=== PATIENT | male | born 1995 | race Hispanic/Latino ===

== ENCOUNTER 2021-07-29 02:21 | Emergency (ER) | payer BC ==
[2021-07-29 04:54] LABS: Basophils % (Auto) 0.4 % (0.0-1.8); Eosinophils % (Auto) 0.2 % (0.0-4.3); Hematocrit 41.9 % (35.5-45.6); Hemoglobin 13.3 gm/dl (11.8-15.2); Lymphocytes # (Auto) 2.3 K/mm3 (1.2-5.4); Lymphocytes % (Auto) 25.5 % (13.4-35.0); Mean Corpuscular HGB Conc 32 % (32-34); Mean Corpuscular Volume 96 fl (84-94); Monocytes # (Auto) 0.6 K/mm3 (0.0-0.8); Monocytes % (Auto) 7.3 % (0.0-7.3); Platelet Count 254 K/mm3 (140-440); Red Blood Count 4.38 M/mm3 (3.65-5.03); Red Cell Distribution Width 13.4 % (13.2-15.2)
[2021-07-29 05:10] LABS: Bacteria,Urine 1+ /HPF (Negative); Bilirubin,Urine NEG (Negative); Blood,Urine NEG (Negative); Color,Urine Yellow (Yellow); Mucus,Urine 1+ /HPF; Protein,Urine <15 mg/dL mg/dL (Negative); RBC,Urine < 1.0 /HPF (0.0-6.0); Urobilinogen,Urine < 2.0 mg/dL (<2.0)
[2021-07-29 05:12] LABS: Alanine Aminotransferase 50 units/L (7-56); Albumin 4.8 g/dL (3.9-5); BUN/Creatinine Ratio 19; Blood Urea Nitrogen 21 mg/dL (9-20); Calcium 9.3 mg/dL (8.4-10.2); Hemolysis Index 4
[2021-07-29 05:15] LABS: Amphetamine Screen,Urine Negative; Cannabinoid Screen,Urine Negative; Cocaine Screen,Urine Negative; Methadone Screen,Urine Negative; Opiate Screen,Urine Negative
[2021-07-29 05:52] LABS: Benzodiazepines Screen,Urine PRESUMPTIVE POSITIVE
--- NOTE | 2021-07-29 06:21 | Emergency Department Report ---
History of Present Illness - General Chief Complaint: Overdose Stated Complaint: overdose Time Seen by Provider: 07/29/21 05:59 Source: EMS Mode of arrival: Stretcher Limitations: No Limitations - History of Present Illness Initial Comments: Patient presented by EMS as an overdose. He was being transferred from one rehab facility in [place] to another rehab facility here in [place]. He apparently met his dolly driver in [place]. Prior to meeting his dolly driver, he managed to procure multiple doses of fentanyl and oxycodone. He then ingested all of those tablets on the drive here and upon arrival to rehab. Rehab found the patient to be somnolent. EMS was called. He was given Narcan. Patient was brought here. Upon arrival here, patient is awake and conversant. He states that he is just sleepy. He has no chest pain or back pain. He is glad that they gave him Narcan and "saved his life." He is not suicidal homicidal. Is not delusional. - Related Data Home Medications Medication Instructions Recorded Confirmed Last Taken FLUoxetine HCL [PROzac] 40 mg PO QDAY 09/08/19 09/08/19 Unknown Hydroxyzine HCl [hydrOXYzine] 50 mg PO BID PRN 09/08/19 09/08/19 Unknown OLANzapine [ZyPREXA] 20 mg PO QHS 09/08/19 09/08/19 Unknown Previous Rx's Medication Instructions Recorded Last Taken Type Naloxone HCl [Narcan Nasal [place]] 4 mg NS ONCE PRN #1 spray 07/29/21 Unknown Rx Allergies Allergy/AdvReac Type Severity Reaction Status Date / Time No Known Allergies Allergy Unverified 09/08/19 03:46 ED Review of Systems ROS: Stated complaint: overdose Other details as noted in HPI Comment: All other systems reviewed and negative Constitutional: denies: fever Eyes: denies: vision change ENT: denies: throat pain Respiratory: denies: cough Cardiovascular: denies: chest pain Endocrine: denies: unexplained weight loss Gastrointestinal: denies: abdominal pain Genitourinary: denies: dysuria Musculoskeletal: denies: back pain Skin: denies: rash Neurological: denies: headache Hematological/Lymphatic: denies: easy bruising ED Past Medical Hx - Past Medical History Previous Medical History?: Yes Hx Psychiatric Treatment: Yes (anxiety, depression, bipolar) Additional medical history: polysubstance abuse - Family History Family history: no significant - Social History Smoking Status: Former Smoker Substance Use Type: Heroin, Marijuana - Medications Home Medications: Home Medications Medication Instructions Recorded Confirmed Last Taken Type FLUoxetine HCL [PROzac] 40 mg PO QDAY 09/08/19 09/08/19 Unknown History Hydroxyzine HCl [hydrOXYzine] 50 mg PO BID PRN 09/08/19 09/08/19 Unknown History OLANzapine [ZyPREXA] 20 mg PO QHS 09/08/19 09/08/19 Unknown History Naloxone HCl [Narcan Nasal [place]] 4 mg NS ONCE PRN #1 spray 07/29/21 Unknown Rx ED Physical Exam - General Limitations: No Limitations, Other (Pulse ox noted and normal) General appearance: alert, in no apparent distress - Head Head exam: Present: atraumatic, normocephalic - Eye Eye exam: Present: normal appearance, EOMI. Absent: scleral icterus - ENT ENT exam: Present: mucous membranes dry, normal external ear exam - Neck Neck exam: Present: normal inspection. Absent: meningismus - Respiratory Respiratory exam: Present: normal lung sounds bilaterally. Absent: respiratory distress - Cardiovascular Cardiovascular Exam: Present: regular rate, normal rhythm - GI/Abdominal GI/Abdominal exam: Present: soft. Absent: distended - Extremities Exam Extremities exam: Present: normal capillary refill - Back Exam Back exam: Absent: CVA tenderness (R), CVA tenderness (L) - Neurological Exam Neurological exam: Present: alert, oriented X3, CN II-XII intact, normal gait. Absent: motor sensory deficit - Psychiatric Psychiatric exam: Present: normal affect, normal mood - Skin Skin exam: Present: warm, dry ED Course Vital Signs 07/29/21 07/29/21 04:06 05:52 Pulse Rate 100 H 71 Respiratory 14 10 L Rate Blood Pressure 107/72 104/57 [Left] O2 Sat by Pulse 99 97 Oximetry - Reevaluation(s) Reevaluation #1: 07/29/21 06:20 Patient was seen. Oral trial has been started. Old records reviewed. Reevaluation #2: 07/29/21 08:12 Work-up was complete. Patient is required no further doses of Narcan. He was discharged. ED Medical Decision Making - Lab Data Result diagrams: 07/29/21 04:26 07/29/21 04:26 Rhythm strip: Normal sinus rhythm without ectopy per monitor observe 10 seconds. - Medical Decision Making Patient presented as an opiate overdose. I do believe this was accidental, not intentional. He was trying to get stoned before he went into rehab. Patient is not suicidal homicidal. Is not responding to extraneous stimuli. He is not delusional. He has been medically cleared and stable here. He does not require ongoing treatment with Narcan. He was subsequently discharged back to detox. Critical Care Time: No Critical care attestation.: If time is entered above; I have spent that time in minutes in the direct care of this critically ill patient, excluding procedure time. ED Disposition Clinical Impression: Opiate overdose Qualifiers: Encounter type: initial encounter Injury intent: accidental or unintentional Qualified Code(s): T40.601A - Poisoning by unspecified narcotics, accidental (unintentional), initial encounter Disposition: HOME / SELF CARE / HOMELESS Is pt being admited?: No Condition: Stable Instructions: Opioid Overdose Additional Instructions: Drink plenty water. Stop using opiates. Go directly to rehab. Return for problems. Follow-up with your regular doctor for recheck and further management. If you do not have a doctor, follow-up with the referral physician. Prescriptions: Naloxone HCl [Narcan Nasal [place]] 4 mg NS ONCE PRN #1 spray PRN Reason: Overdose Referrals: PRIMARY MD KAM [Primary Care Provider] - 3-5 Days ROBERTO RUSH MD [Staff Physician] - 3-5 Days
[2021-07-29 08:50] VITALS: BP 103/57
--- NOTE | 2021-07-29 10:38 | Electrocardiograph Report ---
[facility] Test Date: 2021-07-29 Test Time: 04:50:03 Pat Name: SAM RIZZO Department: Room: Gender: M Patient Financial Representative: NURSE : 1995 Requested By: BORA IRENE Order Number: [id number] Reading MD: George Crawford Measurements Intervals [place] Rate: 86 P: 64 NM: 156 QRS: 66 QRSD: 84 T: 49 QT: 352 QTc: 421 Interpretive Statements Sinus rhythm No previous ECG available for comparison Electronically Signed On 07-29-2021 10:37:45 EST by George Crawford
== END 2021-07-29 08:50 | disposition home or self-care (01) ==
LOC: ED 02:21
DX: T40.601A Poisoning by unspecified narcotics, accidental (unintentional), initial encounter (principal); F31.9 Bipolar disorder, unspecified; Z87.891 Personal history of nicotine dependence; Y92.89 Other specified places as the place of occurrence of the external cause
CPT/HCPCS: 36415; 80053; 80307; 80320; 81001; 85025; 93005; 99284; G0480